=== PATIENT | female | born 1930 | race Caucasian/White ===

== ENCOUNTER 2018-09-05 23:10 | Emergency (ER) | payer OTHER ==
[2018-09-05 23:24] VITALS: BP 105/83; PULSE 98; TEMP 98.1; BMI 22.8
--- NOTE | 2018-09-05 23:24 | PDOC ---
History of Present Illness - General History Source: Patient Exam Limitations: No Limitations - History of Present Illness Initial Comments: 09/05/18 23:59 CC: Right foot pain. HPI: The patient is a 87 year old female, with a significant past medical history of COPD, HTN, and HLD, who presents to the emergency department with, right foot pain. As per patient, her right foot has been hurting for a week but, the pain worsened today after jamming it into a heavy purse. She notes pain and bruising to the right foot. She denies recent fevers, chills, headache or dizziness. She denies recent nausea, vomit, diarrhea or constipation. She denies recent dysuria, frequency, urgency or hematuria. She denies recent chest pain or shortness of breath. Allergies: NKDA Past surgical history: None reported. <Ajit Gonzales - Last Filed: 09/05/18 23:58> <Gilberto Hudson - Last Filed: 09/06/18 00:23> - General Chief Complaint: Injury Stated Complaint: RT FOOT INJURY Time Seen by Provider: 09/05/18 23:19 Past History <Ajit Gonzales - Last Filed: 09/05/18 23:58> - Past Medical History COPD: Yes HTN: Yes Hypercholesterolemia: Yes - Suicide/Smoking/Psychosocial Hx Smoking History: Unknown if ever smoked Have you smoked in the past 12 months: No Information on smoking cessation initiated: No <Gilberto Hudson - Last Filed: 09/06/18 00:23> - Past Medical History Allergies/Adverse Reactions: Allergies Allergy/AdvReac Type Severity Reaction Status Date / Time No Known Allergies Allergy Unverified 09/05/18 23:32 Home Medications: Ambulatory Orders Amlodipine Besylate 5 mg PO DAILY 09/05/18 Latanoprost 0.005% Eye Drops [Xalatan 0.005% Eye Drops -] 1 drop OU HS 09/05/18 Losartan/Hydrochlorothiazide [Losartan-Hctz 100-25 mg Tab] 1 each PO DAILY 09/05 Naproxen Sodium [Aleve] 440 mg PO ONCE 09/05/18 Simvastatin 20 mg PO DAILY 09/05/18 Review of Systems - Review of Systems Able to Perform ROS?: Yes Comments:: 09/05/18 23:59 ROS: A complete review of 10 out of 10 review of systems is taken and is negative apart from what is previously mentioned below and in the HPI. <Ajit Gonzales - Last Filed: 09/05/18 23:58> *Physical Exam - Vital Signs Last Vital Signs Temp Pulse Resp BP Pulse Ox 98.1 F 98 H 18 105/83 100 09/05/18 23:17 09/05/18 23:17 09/05/18 23:17 09/05/18 23:17 09/05/18 23:17 - Physical Exam Comments: 09/05/18 23:59 Vitals: Triage vital signs reviewed General Appearance: No acute distress, well nourished, well developed Head: Atraumatic Rectal: Exam deferred Extremities: Ecchymosis to the right midfoot with moderate tenderness. Skin: Warm and dry, no rashes or lesions, no rash, no petechiae Neuro: AOX3; Cranial Nerves 2-12 grossly intact, Strength intact to all extremities, Sensation intact to all extremities Psych: Normal mood, normal affect <Ajit Gonzales - Last Filed: 09/05/18 23:58> - Vital Signs Last Vital Signs Temp Pulse Resp BP Pulse Ox 98.1 F 98 H 18 105/83 100 09/05/18 23:17 09/05/18 23:17 09/05/18 23:17 09/05/18 23:17 09/05/18 23:17 <Gilberto Hudson - Last Filed: 09/06/18 00:23> Moderate Sedation - Procedure Monitoring Vital Signs: Procedure Monitoring Vital Signs Temperature 98.1 F 09/05/18 23:17 Pulse Rate 98 H 09/05/18 23:17 Respiratory Rate 18 09/05/18 23:17 Blood Pressure 105/83 09/05/18 23:17 O2 Sat by Pulse Oximetry (%) 100 09/05/18 23:17 <Ajit Gonazles - Last Filed: 09/05/18 23:58> - Procedure Monitoring Vital Signs: Procedure Monitoring Vital Signs Temperature 98.1 F 09/05/18 23:17 Pulse Rate 98 H 09/05/18 23:17 Respiratory Rate 18 09/05/18 23:17 Blood Pressure 105/83 09/05/18 23:17 O2 Sat by Pulse Oximetry (%) 100 09/05/18 23:17 <Gilberto Hudson - Last Filed: 09/06/18 00:23> ED Treatment Course - Medications Given in the ED: ED Medications Discontinued Medications Generic Name Dose Route Start Last Admin Trade Name Max PRN Reason Stop Dose Admin Acetaminophen 650 mg 09/05/18 23:29 09/05/18 23:35 Tylenol Oral Solution - PO 09/05/18 23:30 650 mg ONCE ONE Administration <Ajit Gonzales - Last Filed: 09/05/18 23:58> Medical Decision Making - Medical Decision Making 09/06/18 00:00 87 year old female, with a significant past medical history of COPD, HTN, and HLD, who presents to the emergency department with, right foot pain Plan is: Pain medications Right foot x-ray <Ajit Gonzales - Last Filed: 09/05/18 23:58> - Medical Decision Making No acute fracture dislocation noted on x-ray likely bone bruise We'll place in hard soled shoe and crutches and have patient follow up in orthopedics Findings, need for follow-up and strict return instructions discussed with patient. <Gilberto Hudson - Last Filed: 09/06/18 00:23> *DC/Admit/Observation/Transfer - Attestations Scribe Attestion: 09/06/18 00:01 Documentation prepared by Ajit Gonzales, acting as medical imaging technologist for Gilberto Hudson MD. <Ajit Gonzales - Last Filed: 09/05/18 23:58> - Discharge Dispostion Decision to Admit order: No <Gilberto Hudson - Last Filed: 09/06/18 00:23> Diagnosis at time of Disposition: Contusion Qualifiers: Encounter type: initial encounter Contusion area: foot Laterality: right Qualified Code(s): S90.31XA - Contusion of right foot, initial encounter - Discharge Dispostion Disposition: HOME Condition at time of disposition: Stable - Referrals Referrals: Asa Becerra MD [Staff Physician] - - Patient Instructions Printed Discharge Instructions: Contusion Additional Instructions: Hard sole shoe and crutches while ambulating. Ice 20 minutes on 20 minutes off. Keep elevated as much as possible. Alternate Tylenol and Motrin as directed on package as needed for pain today and tomorrow. On Saturday follow-up with Dr. Becerra orthopedics. Return to ED for any concerns.
[2018-09-05] MEDS ORDERED: ACETAMINOPHEN 650 MG/20.3 ML ORAL SOLUTION (CUPS) PO ONE (23:29)
[2018-09-05] MEDS ORDERED: ACETAMINOPHEN 325 MG TABLET (FP) ONE (23:34)
== END 2018-09-06 00:36 | disposition home or self-care (01) ==
LOC: FER 23:10
DX: S90.31XA Contusion of right foot, initial encounter (principal); X58.XXXA Exposure to other specified factors, initial encounter; Y93.89 Activity, other specified; Y92.89 Other specified places as the place of occurrence of the external cause; Y92.9 Unspecified place or not applicable; J44.9 Chronic obstructive pulmonary disease, unspecified; I10 Essential (primary) hypertension; E78.5 Hyperlipidemia, unspecified
CPT/HCPCS: 73630-TC-RT-FY; 99281-25